=== PATIENT | male | born 1990 | race Caucasian/White ===

== ENCOUNTER 2019-01-07 12:45 | Emergency (ER) | payer MEDICAID ==
[~2019-01-07] VITALS: Wt 87.5 kg
[2019-01-07 12:54] VITALS: BP 117/65; PULSE 84; RESP 18
[2019-01-07] MEDS ORDERED: DIPHTH/TET/ACEL PERTUSS (ADULT) 0.5 ML VIAL IM* ONE (15:00)
[2019-01-07] MEDS ORDERED: HYDROCODONE/APAP (5/325) TAB PO ONE (15:00)
[2019-01-07] MEDS ORDERED: IBUP800T48 PO (16:01)
--- NOTE | 2019-01-07 16:04 | ERD ---
ER Documentation Chief Complaint Chief Complaint LEFT HAND 5TH FINGER LACERATION FROM A PLATE HPI 28-year-old male is here with laceration to his left hand. He is right-hand dominant. He was holding a plate which broke and cut him. Unsure last tetanus vaccination. No numbness or tingling. ROS All systems reviewed and are negative except as per history of present illness. Medications Home Meds Active Scripts Ibuprofen* (Motrin*) 800 Mg Tab, 800 MG PO Q6, #30 TAB Prov:SAMMY CLEMONS ERIN 01/07/19 FmHx Family History: No diabetes Physical Exam Vitals Vital Signs Date Temp Pulse Resp B/P (MAP) Pulse Ox O2 O2 Flow FiO2 Time Delivery Rate 01/07/19 97.2 84 18 117/65 98 12:54 (82) Physical Exam Const: No acute distress Head: Atraumatic Eyes: Normal Conjunctiva ENT: Normal External Ears, Nose and Mouth. Neck: Full range of motion. No meningismus. Resp: Clear to auscultation bilaterally Cardio: Regular rate and rhythm, no murmurs Hand - left Skin: Laceration on palmar surface of left fifth digit at PIP joint approximately 1 cm in length, laceration on palmar surface at the base of fourth finger approximately 3 cm in length, superficial Compartments: Soft Sensation: Intact shoulder/pinky/middle finger/thumb web space Bones: Nontender Snuffbox: Nontender Joints: No effusion Wrist: Flex/Ext: Normal Uln/Radial deviation: Normal Pron/Supination Normal Finger: Flex/Ext: Normal Add/abd: Normal Thumb: Flex/Ext: Normal Opposition: Normal Thumbs up: Normal Results 24 hrs Current Medications Medications Dose Sig/Luis Start Time Status Last (Trade) Ordered Route PRN Stop Time Admin Dose Reason Admin Diphtheria/ 0.5 ml ONCE ONCE 01/07/19 DC 01/07/19 Tetanus/Acell IM* 15:00 15:07 Pertussis 01/07/19 15:01 (Adacel) 1 tab ONCE ONCE 01/07/19 DC 01/07/19 Acetaminophen PO 15:00 15:07 / 01/07/19 15:01 Hydrocodone Bitart ([place] (5/325)) Procedures/MDM The skin edges of the laceration were infiltrated with 1% lidocaine . The laceration was irrigated with copious amounts of normal saline. The wound was prepped with Betadine. On examination under direct light, there was no foreign body seen. The laceration was repaired with simple interrupted sutures. After repair, there was no continuing bleeding on repair and there did not appear to be any complication related to repair. The patient tolerated the procedure well and the wound was appropriately dressed and bandaged. I recommended the patient return in 2 days for a wound check and 7-10 days for removal of sutures. X-ray is negative. Finger splint placed. Patient counseled regarding my diagnostic impression and care plan. Prior to discharge all questions answered. Pt agrees with treatment plan and understands strict return precautions. Pt is instructed to follow up with primary care provider within 24-48 hours. Precautionary instructions provided including instructions to return to the ER if not improving or for any worsening or changing symptoms or concerns. Departure Diagnosis: Primary Impression: Laceration Condition: Stable Patient Instructions: Laceration, Hand Additional Instructions: SUTURE REMOVAL:CONSULTE A MCCABE MDICO PARA SACAR MCCABE PUNTOS.PARA LA LINDA 5-6 wilkerson.EN OTRO LUGAR 7-10 wilkerson. WOUND CHECK:CONSULTE A MCCABE MDICO EN 2 wilkerson para toñito MCCABE HERIDA. SAMMY CLEMONS PA-C Jan 07, 2019 16:04
== END 2019-01-07 18:57 | disposition home or self-care (01) ==
LOC: FTE 12:45
DX: S61.217A Laceration without foreign body of left little finger without damage to nail, initial encounter (principal); W26.8XXA Contact with other sharp object(s), not elsewhere classified, initial encounter; Y92.9 Unspecified place or not applicable
CPT/HCPCS: 12002; 73130; 90471; 90715; Z7502; Z7610

== ENCOUNTER 2019-01-09 19:58 | Emergency (ER) | payer MEDICAID ==
[~2019-01-09] VITALS: Ht 167.6 cm; Wt 89.7 kg
[~2019-01-09 19:58] MED LIST: IBUP800T48 PO
[2019-01-09 20:29] VITALS: BP 128/56; PULSE 76; RESP 18; Ht 167.6 cm; Wt 89.7 kg
--- NOTE | 2019-01-09 23:24 | ERD ---
ER Documentation Chief Complaint Chief Complaint wound check left hand, was here 2 days ago for lac repair HPI 28-year-old male presents for follow-up visit after getting sutures in his left hand 2 days ago. Taking ibuprofen. Denies fevers, chills, discharge from wound site, dehiscence of sutures, pain, edema. ROS All systems reviewed and are negative except as per history of present illness. Medications Home Meds Active Scripts Ibuprofen* (Motrin*) 800 Mg Tab, 800 MG PO Q6, #30 TAB Prov:SAMMY CLEMONS PA-C 01/07/19 Allergies Allergies: Coded Allergies: No Known Drug Allergies (Verified Allergy, Unknown, 01/09/19) PMhx/Soc Medical and Surgical Hx: pt denies Medical Hx, pt denies Surgical Hx Hx Alcohol Use: No Hx Substance Use: No Hx Tobacco Use: No Physical Exam Vitals Vital Signs Date Temp Pulse Resp B/P (MAP) Pulse Ox O2 O2 Flow FiO2 Time Delivery Rate 01/09/19 98.2 76 18 128/56 98 20:29 (80) Physical Exam Const: No acute distress Head: Atraumatic Eyes: Normal Conjunctiva ENT: Normal External Ears, Nose and Mouth. Neck: Full range of motion. No meningismus. Resp: Clear to auscultation bilaterally Cardio: Regular rate and rhythm, no murmurs Left hand: Sutures are in place without any signs of dehiscence. There is no discharge from wound site noted. There is no edema or erythema. Distal se nsation and range of motion is intact. Neur: Awake and alert Psych: Normal Mood and Affect Procedures/MDM 28-year-old male presents for follow-up visit after getting sutures in his left hand 2 days ago. Taking ibuprofen. Denies fevers, chills, discharge from wound site, dehiscence of sutures, pain, edema. I have low suspicion for neurovascular compromise, compartment syndrome, fracture, osteomyelitis, septic joint, acute space infection, neurovascular compromise, or other emergent condition. Wound appears to be healing well without any signs of dehiscence or infection. Patient advised to come back in 10 days for suture removal. Denies past medical history. Denies allergies. Denies medications. Denies surgeries. Denies alcohol, tobacco, drug use. Up to date on vaccines. Departure Diagnosis: Primary Impression: Encounter for wound re-check Condition: Stable Patient Instructions: Wound Check, Lac F/U (No Infection) Referrals: [facility] YOU HAVE RECEIVED A MEDICAL SCREENING EXAM AND THE RESULTS INDICATE THAT YOU DO NOT HAVE A CONDITION THAT REQUIRES URGENT TREATMENT IN THE EMERGENCY DEPARTMENT. FURTHER EVALUATION AND TREATMENT OF YOUR CONDITION CAN WAIT UNTIL YOU ARE SEEN IN YOUR DOCTORS OFFICE WITHIN THE NEXT 1-2 DAYS. IT IS YOUR RESPONSIBILITY TO MAKE AN APPOINTMENT FOR FOLOW-UP CARE. IF YOU HAVE A PRIMARY DOCTOR --you should call your primary doctor and schedule an appointment IF YOU DO NOT HAVE A PRIMARY DOCTOR YOU CAN CALL OUR PHYSICIAN REFERRAL HOTLINE AT IF YOU CAN NOT AFFORD TO SEE A PHYSICIAN YOU CAN CHOSE FROM THE FOLLOWING [facility] [address] [facility]. [facility] [address] [facility] [facility] [address] [facility] [address] [facility]. [facility] [address] [facility]. [facility]. [address] Additional Instructions: Return in 10 days for suture removal .Return to this facility sooner if you are not improving as expected. BIGG BORJA Jan 09, 2019 23:24
== END 2019-01-09 23:24 | disposition home or self-care (01) ==
LOC: FTE 19:58
DX: Z48.01 Encounter for change or removal of surgical wound dressing (principal)
CPT/HCPCS: 99281

== ENCOUNTER 2019-01-20 08:07 | Emergency (ER) | payer MEDICAID ==
[~2019-01-20] VITALS: Wt 89.0 kg
[2019-01-20 08:10] VITALS: BP 130/61; PULSE 69; RESP 18
--- NOTE | 2019-01-20 08:25 | ERD ---
ER Documentation Chief Complaint Chief Complaint here for suture removal, drsg intact . no bleeding or complaints per pt HPI This is a 28-year-old male who presents ED for suture r removal. Denies pain, swelling, redness, purulent drainage, warmth, active bleeding, tingling, numbness, lack sensation other symptoms. ROS All systems reviewed and are negative except as per history of present illness. Medications Home Meds Active Scripts Ibuprofen* (Motrin*) 800 Mg Tab, 800 MG PO Q6, #30 TAB Prov:SAMMY CLEMONS PA-C 01/07/19 Allergies Allergies: Coded Allergies: No Known Drug Allergies (Verified Allergy, Unknown, 01/09/19) PMhx/Soc Hx Alcohol Use: No Hx Substance Use: No Hx Tobacco Use: No Physical Exam Vitals Vital Signs Date Temp Pulse Resp B/P (MAP) Pulse Ox O2 O2 Flow FiO2 Time Delivery Rate 01/20/19 98.0 69 18 130/61 98 08:10 (84) Physical Exam Physical Exam Vitals signs: Reviewed by me. General: Well developed, well nourished, in no acute distress. Patient is awake and alert. Head: Normocephalic, atraumatic. Eyes: Normal conjunctiva, Pupils PERRLA, EOM intact grossly ENT: Pharynx is clear, Moist mucous membranes, external ears, nose and mouth normal Neurologic: Alert and oriented, moving all extremities, normal speech, no focal weakness, no cerebellar signs. Normal mentation Skin: Sutures in place along patient's left palmar hand and left fifth digit, no dehiscence, no lymphatic streaking, no redness, swelling, warmth or tenderness to palpation, no purulent drainage warm and dry, No rash Psych: Normal mood Procedures/MDM ER COURSE: The patient was stable throughout ED course. I kept the patient and/or family informed of laboratory and diagnostic imaging results throughout the emergency room course. The patient was promptly evaluated and a treatment plan was devised based on H&P and other data. This plan was discussed with the patient who agreed and had no further questions or concerns prior to discharge. MEDICAL DECISION MAKIN-year-old male presents ED for suture removal. The wound is clean, dry and intact with no evidence of infection. Patient has good wound closure and good wound approximation. There is no surrounding erythema, warmth, tenderness or lymphatic streaking. Sutures were removed without complication. Low suspicion for deep space infection, compartment syndrome, cellulitis, neurovascular injury, tendon injury. Patient's vitals are stable and patient can be managed with close outpatient follow-up. Advised patient follow-up with primary care in the next 48 hours. Advised to return to ED with any worsening symptoms. DISPOSITION PLAN: We discussed follow up with the patient's primary care doctor within 24 to 48 hours. Patient counseled regarding my diagnostic impression and care plan. Prior to discharge all questions answered. Pt agrees with treatment plan and understands strict return precautions. Precautionary instructions provided including instructions to return to the ER if not improving or for any worsening or changing symptoms or concerns. ExitCare instructions provided. Prior to discharge, patients vital signs have been reviewed SPECIALIST FOLLOW UP RECOMMENDED: None Patient has been advised to follow up with primary care in 1-2 days. Disclaimer: Inadvertent spelling and grammatical errors are likely due to EHR/dictation software use and do not reflect on the overall quality of patient care. Also, please note that the electronic time recorded on this note does not necessarily reflect the actual time of the patient encounter. Blood Pressure Assessment: Patient's blood pressure was elevated (>120/80) but appears stable without evidence of hypertension emergency or urgency. The patient was counseled about the risks of hypertension and urged to pursue outpatient monitoring and therapy within a week with their primary care physician. Departure Diagnosis: Primary Impression: Encounter for removal of sutures Condition: Stable Patient Instructions: Suture Removal, No Complication Referrals: [facility] () Usted se carrillo hecho un examen mdico de control que le indica que no est en bertin condicin que requiera tratamiento urgente en el Departamento de Emergencia. Un estudio ms profundo y el tratamiento de mcgrath condicin pueden esperar sin ningn riesgo hasta que usted sea atendida/o en el consultorio de mcgrath mdico o bertin clnica. Es responsabilidad suya arreglar bertin fabricio para el seguimiento del ariel. MANEJO DE CONDICIONES NO URGENTES EN EL FUTURO 1) Si usted tiene un mdico de atencin primaria: ted debera llamar a mcgrath mdico de atencin primaria antes de venir al departamento de emergencia. Despus de las horas de consultorio, mcgrath doctor o mcgrath asociado/a est disponible por telfono. El mdico o enfermero de herbie en el servicio telefnico puede asesorarle por taco medio para atender el problema, o ariel contrario se puede programar bertin fabricio. 2) Si usted no tiene un mdico de atencin primaria: Llame al mdico o clnica de referencia que aparece abajo rima las horas de consultorio para hacer bertin fabricio para que le vean. CLINICAS: [place] [phone] [facility] [phone] [facility] [phone] [place] [address] [phone] [place] [address] [phone] [facility]. [phone] [address] Additional Instructions: Paciente aconseja volver a Departamento de urgencias inmediatamente para sntomas nuevos o que empeoran . Paciente aconseja posteriores con el PCP en 1-2 wilkerson . Paciente verbaliza la comprehensin y est de acuerdo con el tratamiento y el curso de accin. Si el paciente no tiene ninguna de atencin primaria pueden seguir con [facility] [address] [place] [address] o [facility] + [facility] [address] [place] [id number] BAR GALAN PA-C Jan 20, 2019 08:25
== END 2019-01-20 08:37 | disposition home or self-care (01) ==
LOC: FTE 08:07
DX: Z48.02 Encounter for removal of sutures (principal)
CPT/HCPCS: 99281